=== PATIENT | male | born 1965 | race Asian ===

== ENCOUNTER 2020-10-07 19:31 | Emergency (ER) | payer MEDICAID ==
[~2020-10-07] VITALS: Ht 172.7 cm; Wt 86.4 kg
[2020-10-07 19:48] VITALS: BP 138/81
[2020-10-07] MEDS ORDERED: ibuprofen tablet 400 MG TABLET PO ONE (21:30)
--- NOTE | 2020-10-07 21:36 | NUR ---
hurt his right middle finger, slight swelling and some bruising. Dog took off and leash got him.
== END 2020-10-07 21:36 | disposition home or self-care (01) ==
LOC: ER 19:32
DX: S63.692A Other sprain of right middle finger, initial encounter (principal); M79.644 Pain in right finger(s); X58.XXXA Exposure to other specified factors, initial encounter; Y93.89 Activity, other specified; Y92.89 Other specified places as the place of occurrence of the external cause; Y99.8 Other external cause status
CPT/HCPCS: 29130; 73140; 99283

== ENCOUNTER 2020-12-01 21:21 | Emergency (ER) | payer MEDICAID ==
[~2020-12-01] VITALS: Ht 172.7 cm; Wt 91.1 kg
[2020-12-01] MEDS ORDERED: CLOT15CR73 TP (22:43)
[2020-12-01 22:53] VITALS: BP 140/101
== END 2020-12-01 22:55 | disposition home or self-care (01) ==
LOC: ER 21:22
DX: B35.8 Other dermatophytoses (principal); Z88.1 Allergy status to other antibiotic agents; Z79.899 Other long term (current) drug therapy
CPT/HCPCS: 99284

== ENCOUNTER 2020-12-31 16:03 | Emergency (ER) | payer MEDICAID ==
[~2020-12-31] VITALS: Ht 172.7 cm; Wt 94.1 kg
[~2020-12-31 16:03] MED LIST: CLOT15CR73 TP
[2020-12-31 16:10] VITALS: BP 156/93
[2020-12-31] MEDS ORDERED: KEN0.1O TP (16:38)
== END 2020-12-31 16:45 | disposition home or self-care (01) ==
LOC: ER 16:03
DX: R21 Rash and other nonspecific skin eruption (principal); Z88.1 Allergy status to other antibiotic agents; Z79.2 Long term (current) use of antibiotics; Z79.899 Other long term (current) drug therapy
CPT/HCPCS: 99283